=== PATIENT | female | born 1950 | race Caucasian/White ===

== ENCOUNTER 2021-11-28 13:57 | Inpatient (IN) | payer MEDICARE ==
[~2021-11-28] VITALS: Ht 121.9 cm; Wt 42.1 kg
[2021-11-28] MEDS ORDERED: ATORVASTATIN CA20 MG PO (14:48)
[2021-11-28] MEDS ORDERED: FOLIC ACID1 MG PO (14:49)
[2021-11-28] MEDS ORDERED: COMBIGAN 0.2%-0.5 ML OU (14:51)
[2021-11-28] MEDS ORDERED: LASIX40 M1 PO (14:52)
[2021-11-28] MEDS ORDERED: PROTONIX TR40 M1 PO (14:52)
[2021-11-28] MEDS ORDERED: PREDNISONE 5MG5 MG PO ×2 (14:52→14:56)
[2021-11-28] MEDS ORDERED: ALDACTONE25 M1 PO (14:53)
[2021-11-28] MEDS ORDERED: COZAAR25 M1 PO (14:53)
[2021-11-28] MEDS ORDERED: WARFARIN SOD2 MG PO (14:54)
[2021-11-28] MEDS ORDERED: POTASSIUM CHLO10 ME6 PO (14:55)
[2021-11-28] MEDS ORDERED: SUCRALFATE1 G1 PO (14:57)
[2021-11-28] MEDS ORDERED: RINVOQ ER15 MG PO (14:58)
[2021-11-28] MEDS ORDERED: LATANOPROST 2.2.5 ML OU (14:58)
[2021-11-28] MEDS ORDERED: SYSTANE 0.3-0.1 EACH OP (14:59)
[2021-11-28 15:01] VITALS: BP 101/48
[2021-11-28] MEDS ORDERED: PROLIA60 MG/ML SC (15:02)
[2021-11-28] MEDS ORDERED: CALCIUM + D3 E1 EACH PO (15:02)
[2021-11-28] MEDS ORDERED: MURO 128 5% OPH15 ML OU (15:04)
[2021-11-28 16:21] LABS: HEMATOCRIT 35.6 % (37.0-47.0); HEMOGLOBIN 10.8 g/dL (12.5-16.0); MEAN CELL VOLUME 89 fl (78-100); MEAN CORPUSCULAR HEMOGLOBIN 27 pg (27-31); MEAN CORPUSCULAR HGB CONC 30 g/dL (33-37); MEAN PLATELET VOLUME 10.3 fl (7.4-10.4); PLATELET COUNT 205 K/mm3 (130-400); RED BLOOD COUNT 3.98 M/mm3 (4.10-5.30); RED CELL DISTRIBUTION WIDTH 16.9 % (11.5-14.5); WHITE BLOOD COUNT 14.5 K/mm3 (4.8-10.8)
[2021-11-28 16:33] LABS: ALBUMIN 3.1 g/dL (3.4-4.8)
[2021-11-28 16:34] LABS: POTASSIUM 3.8 mmol/L (3.5-5.1)
[2021-11-28 16:35] LABS: CALCIUM 8.7 mg/dL (8.3-10.5)
[2021-11-28 16:36] LABS: TOTAL PROTEIN 6.3 g/dL (6.2-8.1)
[2021-11-28 16:38] LABS: TOTAL BILIRUBIN 0.7 mg/dL (0.2-1.2)
[2021-11-28 17:00] LABS: URINE APPEARANCE CLEAR; URINE BILIRUBIN NEGATIVE (NEGATIVE); URINE BLOOD 50 ery/uL (NEGATIVE); URINE COLOR YELLOW; URINE GLUCOSE NEGATIVE (NEGATIVE); URINE KETONE NEGATIVE (NEGATIVE); URINE LEUKOCYTE ESTERASE TRACE (NEGATIVE); URINE NITRATE NEGATIVE (NEGATIVE); URINE PROTEIN(semi-quant) 1+ (NEGATIVE); URINE UROBILINOGEN NORMAL (NORMAL)
[2021-11-28 17:02] LABS: URINE MUCUS PRESENT (NOT PRESENT)
[2021-11-28 17:19] LABS: PROTHROMBIN TIME 21.1 SECONDS (9.0-12.0)
[2021-11-28 17:36] LABS: NEUTROPHILS 97 % (42-75)
[2021-11-28 17:37] LABS: HYPOCHROMIA 1+; LYMPHOCYTE 1 % (20-51); MONOCYTE 2 % (3-10); POLYCHROMASIA 1+
[2021-11-29 05:42] VITALS: BP 159/62
[2021-11-29 18:12] VITALS: BP 104/58
[2021-11-30 05:10] VITALS: BP 135/54
[2021-11-30 17:57] VITALS: BP 103/62
[2021-12-01 05:51] VITALS: BP 150/65
[2021-12-01 07:53] LABS: PROTHROMBIN TIME 19.7 SECONDS (9.0-12.0)
[2021-12-01 18:24] VITALS: BP 89/56
[2021-12-02 06:12] VITALS: BP 143/53
[2021-12-02 12:50] VITALS: BP 117/63
[2021-12-02 17:59] VITALS: BP 114/58
[2021-12-02 19:56] VITALS: BP 118/58
[2021-12-03 06:14] VITALS: BP 137/78
[2021-12-03 08:35] VITALS: BP 127/69
[2021-12-03 17:37] VITALS: BP 113/54
[2021-12-04 06:06] VITALS: BP 131/64
[2021-12-04 18:06] VITALS: BP 126/62
[2021-12-05 06:15] VITALS: BP 133/51
[2021-12-05 07:03] LABS: BASO # 0.02 K/mm3 (0.02-0.10); EOS % 1.3 % (1.0-5.0); HEMATOCRIT 32.8 % (37.0-47.0); HEMOGLOBIN 10.2 g/dL (12.5-16.0); LYMPH# 0.76 K/mm3 (1.50-4.00); MEAN CELL VOLUME 86 fl (78-100); MEAN CORPUSCULAR HEMOGLOBIN 27 pg (27-31); MEAN CORPUSCULAR HGB CONC 31 g/dL (33-37); MONO # 0.36 K/mm3 (0.20-0.80); NEU # 6.57 K/mm3 (1.40-6.50); PLATELET COUNT 281 K/mm3 (130-400); RED BLOOD COUNT 3.83 M/mm3 (4.10-5.30); RED CELL DISTRIBUTION WIDTH 16.4 % (11.5-14.5); WHITE BLOOD COUNT 7.9 K/mm3 (4.8-10.8)
[2021-12-05 07:17] LABS: ALBUMIN 2.9 g/dL (3.4-4.8)
[2021-12-05 07:18] LABS: POTASSIUM 3.5 mmol/L (3.5-5.1)
[2021-12-05 07:19] LABS: CALCIUM 11.8 mg/dL (8.3-10.5)
[2021-12-05 07:20] LABS: TOTAL PROTEIN 6.1 g/dL (6.2-8.1)
[2021-12-05 07:22] LABS: TOTAL BILIRUBIN 0.5 mg/dL (0.2-1.2)
[2021-12-05 08:12] LABS: PROTHROMBIN TIME 34.6 SECONDS (9.0-12.0)
[2021-12-05 15:59] VITALS: BP 111/44
[2021-12-05 17:08] VITALS: BP 109/56
[2021-12-06 06:01] VITALS: BP 128/68
[2021-12-06 17:23] VITALS: BP 110/54
[2021-12-06 23:46] VITALS: BP 115/54
[2021-12-06 23:51] LABS: GASTROCCULT POSITIVE
[2021-12-07 06:39] VITALS: BP 134/65
[2021-12-07 07:07] LABS: BASO # 0.02 K/mm3 (0.02-0.10); EOS # 0.08 K/mm3 (0.04-0.40); EOS % 0.5 % (1.0-5.0); HEMATOCRIT 32.1 % (37.0-47.0); HEMOGLOBIN 9.8 g/dL (12.5-16.0); LYMPH# 0.84 K/mm3 (1.50-4.00); MEAN CELL VOLUME 88 fl (78-100); MEAN CORPUSCULAR HEMOGLOBIN 27 pg (27-31); MEAN CORPUSCULAR HGB CONC 31 g/dL (33-37); MEAN PLATELET VOLUME 11.2 fl (7.4-10.4); MONO # 0.27 K/mm3 (0.20-0.80); NEU # 13.32 K/mm3 (1.40-6.50); PLATELET COUNT 314 K/mm3 (130-400); RED BLOOD COUNT 3.66 M/mm3 (4.10-5.30); RED CELL DISTRIBUTION WIDTH 16.3 % (11.5-14.5); WHITE BLOOD COUNT 14.7 K/mm3 (4.8-10.8)
[2021-12-07 07:11] LABS: ALBUMIN 2.9 g/dL (3.4-4.8); POTASSIUM 3.6 mmol/L (3.5-5.1)
[2021-12-07 07:13] LABS: TOTAL PROTEIN 6.2 g/dL (6.2-8.1)
[2021-12-07 07:15] LABS: TOTAL BILIRUBIN 0.5 mg/dL (0.2-1.2)
[2021-12-07 07:31] LABS: PROTHROMBIN TIME 23.6 SECONDS (9.0-12.0)
[2021-12-07 07:49] LABS: CALCIUM 13.9 mg/dL (8.3-10.5)
[2021-12-07 11:48] LABS: URINE APPEARANCE HAZY; URINE BILIRUBIN NEGATIVE (NEGATIVE); URINE BLOOD TRACE (NEGATIVE); URINE COLOR YELLOW; URINE GLUCOSE NEGATIVE (NEGATIVE); URINE KETONE NEGATIVE (NEGATIVE); URINE LEUKOCYTE ESTERASE NEGATIVE (NEGATIVE); URINE NITRATE NEGATIVE (NEGATIVE); URINE PROTEIN(semi-quant) NEGATIVE (NEGATIVE); URINE UROBILINOGEN NORMAL (NORMAL); URINE WBC 0-1 /hpf (0-3)
[2021-12-07 11:49] LABS: URINE MUCUS PRESENT (NOT PRESENT)
[2021-12-07 17:18] VITALS: BP 115/46
[2021-12-07 19:54] LABS: HEMATOCRIT 31.1 % (37.0-47.0); HEMOGLOBIN 9.5 g/dL (12.5-16.0); MEAN CELL VOLUME 88 fl (78-100); MEAN CORPUSCULAR HEMOGLOBIN 27 pg (27-31); MEAN CORPUSCULAR HGB CONC 31 g/dL (33-37); MEAN PLATELET VOLUME 10.4 fl (7.4-10.4); PLATELET COUNT 303 K/mm3 (130-400); RED BLOOD COUNT 3.55 M/mm3 (4.10-5.30); RED CELL DISTRIBUTION WIDTH 16.4 % (11.5-14.5)
[2021-12-07 20:39] LABS: BAND 5 % (0-10); LYMPHOCYTE 1 % (20-51); MONOCYTE 1 % (3-10); NEUTROPHILS 93 % (42-75)
[2021-12-08] VITALS (9 sets, daily range): BP systolic 64–113; BP diastolic 41–49
[2021-12-08 07:23] LABS: BASO # 0.02 K/mm3 (0.02-0.10); EOS # 0.15 K/mm3 (0.04-0.40); EOS % 1.4 % (1.0-5.0); HEMATOCRIT 31.6 % (37.0-47.0); HEMOGLOBIN 9.6 g/dL (12.5-16.0); MEAN CELL VOLUME 88 fl (78-100); MEAN CORPUSCULAR HEMOGLOBIN 27 pg (27-31); MEAN CORPUSCULAR HGB CONC 30 g/dL (33-37); MEAN PLATELET VOLUME 10.7 fl (7.4-10.4); MONO # 0.27 K/mm3 (0.20-0.80); NEU # 9.74 K/mm3 (1.40-6.50); PLATELET COUNT 272 K/mm3 (130-400); RED CELL DISTRIBUTION WIDTH 16.4 % (11.5-14.5); WHITE BLOOD COUNT 10.9 K/mm3 (4.8-10.8)
[2021-12-08 07:29] LABS: PROTHROMBIN TIME 26.9 SECONDS (9.0-12.0)
[2021-12-08 07:50] LABS: ALBUMIN 2.8 g/dL (3.4-4.8)
[2021-12-08 07:51] LABS: CALCIUM 11.5 mg/dL (8.3-10.5)
[2021-12-08 07:53] LABS: TOTAL PROTEIN 5.2 g/dL (6.2-8.1)
[2021-12-08 07:54] LABS: TOTAL BILIRUBIN 0.5 mg/dL (0.2-1.2)
[2021-12-08 10:00] LABS: HEMATOCRIT 27.3 % (37.0-47.0); HEMOGLOBIN 8.3 g/dL (12.5-16.0); MEAN CELL VOLUME 88 fl (78-100); MEAN CORPUSCULAR HEMOGLOBIN 27 pg (27-31); MEAN CORPUSCULAR HGB CONC 30 g/dL (33-37); MEAN PLATELET VOLUME 10.7 fl (7.4-10.4); PLATELET COUNT 268 K/mm3 (130-400); RED BLOOD COUNT 3.09 M/mm3 (4.10-5.30); RED CELL DISTRIBUTION WIDTH 16.3 % (11.5-14.5); WHITE BLOOD COUNT 13.5 K/mm3 (4.8-10.8)
[2021-12-08 10:20] LABS: ALBUMIN 2.7 g/dL (3.4-4.8); POTASSIUM 3.8 mmol/L (3.5-5.1)
[2021-12-08 10:21] LABS: CALCIUM 11.5 mg/dL (8.3-10.5)
[2021-12-08 10:22] LABS: TOTAL PROTEIN 5.7 g/dL (6.2-8.1)
[2021-12-08 10:24] LABS: TOTAL BILIRUBIN 0.4 mg/dL (0.2-1.2)
[2021-12-08 11:12] LABS: PROTHROMBIN TIME 28.2 SECONDS (9.0-12.0)
[2021-12-08 11:55] LABS: BAND 2 % (0-10); LYMPHOCYTE 5 % (20-51); NEUTROPHILS 90 % (42-75)
== END 2021-12-08 11:30 | disposition short-term general hospital (02) | DRG 189 ==
LOC: MED/SURG 13:57
PROVIDERS: Internal Medicine; Nurse Practitioner; Physician Assistant; ADMIT Nurse Practitioner
DX: J96.20 Acute and chronic respiratory failure, unspecified whether with hypoxia or hypercapnia (principal); J81.0 Acute pulmonary edema; I71.02 Dissection of abdominal aorta; D62 Acute posthemorrhagic anemia; E87.3 Alkalosis; I50.32 Chronic diastolic (congestive) heart failure; I11.0 Hypertensive heart disease with heart failure; I95.9 Hypotension, unspecified; E87.6 Hypokalemia; I27.20 Pulmonary hypertension, unspecified; I48.91 Unspecified atrial fibrillation; I77.9 Disorder of arteries and arterioles, unspecified; M06.9 Rheumatoid arthritis, unspecified; K25.9 Gastric ulcer, unspecified as acute or chronic, without hemorrhage or perforation; K44.9 Diaphragmatic hernia without obstruction or gangrene; H40.9 Unspecified glaucoma; E78.5 Hyperlipidemia, unspecified; H91.90 Unspecified hearing loss, unspecified ear; Z79.01 Long term (current) use of anticoagulants; Z79.52 Long term (current) use of systemic steroids; Z95.2 Presence of prosthetic heart valve; Z87.891 Personal history of nicotine dependence; Z90.49 Acquired absence of other specified parts of digestive tract
CPT/HCPCS: A9270; C9113; J2543; J7030; J7060; J7512; Q9967